=== PATIENT | male | born 2000 | race Caucasian/White ===

== ENCOUNTER 2022-08-30 16:13 | Emergency (ER) | payer OTHER ==
[2022-08-30] MEDS ORDERED: MORPHINE 2 MG/ML CARPUJECT IVP STA ×2 (16:19→17:04)
--- NOTE | 2022-08-30 16:21 | ED Physician Documentation ---
History of Present Illness - Stated complaint Stated Complaint: LOC/HIT HEAD/LAC - History obtained from History obtained from: Patient, EMS - Additonal information Additional information: Otherwise healthy 22-year-old gentleman was at work today. He was "wrestling" with his coworkers and fell and hit the back of his head on tile. There was loss of consciousness and now he is confused with a severe headache. No other injuries. Review of Systems Unable to obtain: Confused PD PAST MEDICAL HISTORY - Present Medications Home Medications: Ambulatory Orders Medication Instructions Recorded Confirmed Ondansetron Odt [Zofran] 4 mg TL Q6H PRN #10 tablet 08/30/22 - Allergies Allergies/Adverse Reactions: Allergies Allergy/AdvReac Type Severity Reaction Status Date / Time No Known Drug Allergies Allergy Verified 08/30/22 16:21 PD ED PE NORMAL - Vitals Vital signs reviewed: Yes - General General: No acute distress, Other (Alert and oriented to person and events but not place or time, although he thinks he is in "medical") - HEENT HEENT: PERRL, EOMI - Neck Neck: No bony TTP (But will CT given altered mental status) - Cardiac Cardiac: RRR, No murmur - Respiratory Respiratory: No respiratory distress, Clear bilaterally - Abdomen Abdomen: Non tender - Back Back: No CVA TTP, No spinal TTP - Derm Derm: Normal color, Warm and dry - Extremities Extremities: No edema, No calf tenderness / cord - Neuro Neuro: custodial aide 2-12 intact, No motor deficit, No sensory deficit, Normal speech Eye Opening: Spontaneous Motor: Obeys Commands Verbal: Confused GCS Score: 14 Results - Vitals Vitals: Vital Signs - 24 hr 08/30/22 08/30/22 08/30/22 16:15 16:41 17:21 Temperature 37.2 C Heart Rate 98 89 90 Respiratory 16 16 16 Rate Blood Pressure 124/77 128/82 H 105/87 H O2 Saturation 97 96 99 08/30/22 08/30/22 08/30/22 17:58 19:00 20:26 Temperature Heart Rate 87 105 H 97 Respiratory 16 18 16 Rate Blood Pressure 121/85 H 133/83 H 120/72 O2 Saturation 99 100 97 08/30/22 08/30/22 21:11 22:10 Temperature Heart Rate 92 98 Respiratory 18 18 Rate Blood Pressure 100/60 122/75 O2 Saturation 97 97 Oxygen O2 Source Room air - Labs Labs: Laboratory Tests 08/30/22 08/30/22 08/30/22 17:13 17:13 17:13 WBC 14.1 H RBC 5.13 Hgb 13.6 L Hct 42.2 MCV 82.3 MCH 26.5 L MCHC 32.2 RDW 13.2 Plt Count 294 MPV 10.5 Neut # (Auto) 11.6 H Lymph # (Auto) 1.4 L [place] # (Auto) 0.9 Eos # (Auto) 0.1 Baso # (Auto) 0.1 Absolute Nucleated RBC 0.00 Nucleated RBC % 0.0 PT 12.3 INR 1.1 Sodium 134 L Potassium 3.7 Chloride 101 Carbon Dioxide 23 Anion Gap 10.0 BUN 18 Creatinine 0.8 Estimated GFR (MDRD) 123 Glucose 130 H Calcium 8.4 L - Rads (name of study) CT Head Radiology: Final report received ( ), Discussed with rads, EMP read indepedently CT C Spine Radiology: Final report received, EMP read indepedently Rpt CT Head Radiology: Final report received, EMP read indepedently PD Medical Decision Making - ED course Complexity details: re-evaluated patient (Rpt eval with at bedise, A/Ox4, nl gait. Sx controlled.) ED course: CT Head #1: IMPRESSION: Trace subtle subarachnoid blood products within the sulci of the anterior-inferior right frontal lobe and anterior right temporal lobe. No intraparenchymal contusion or hemorrhage is seen. Ventricles and basilar cisterns are patent. CT CSpine: 1. Nondisplaced left occipital bones fracture/basilar skull fracture. 2. No evidence acute cervical fracture or dislocation. 22-year-old gentleman presents with a head injury. Found to have a small amount of subarachnoid hemorrhage and the images were sent to [facility] for consultation. After some delays as the neurosurgical team was in the OR I spoke with Dr. Everton Piper MD At approximately 7:09 PM and he agrees that patient can be safely discharged if a CT done at the 6-hour time soham is without significant interval change. Departure - Departure Disposition: 01 Home, Self Care Clinical Impression: Skull fracture, Subarachnoid hemorrhage following injury Condition: Good Record reviewed to determine appropriate education?: Yes Instructions: ED Head Injury Closed Prescriptions: Ondansetron Odt [Zofran] 4 mg TL Q6H PRN #10 tablet PRN Reason: Nausea / Vomiting Comments: You were seen tonight for a head injury in which she suffered significant concussive symptoms, and also a small subarachnoid hemorrhage and a skull fracture. We did 2 CAT scans, to make sure that it was not progressing and the second looks better than the first. Although no specific therapy is needed for this, I would like you to do the following: Avoid aspirin, ibuprofen, and other anti-inflammatories for the next week. You can take Tylenol for pain. Off work through the weekend. 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 Forms: Activity restrictions Discharge Date/Time: 08/30/22 22:17
--- NOTE | 2022-08-30 16:57 | CT Report ---
PROCEDURE: HEAD WO INDICATIONS: head inj TECHNIQUE: Noncontrast 4.5 mm thick angled axial sections acquired from the foramen magnum to the vertex. For r adiation dose reduction, the following was used: automated exposure control, adjustment of mA and/or kV according to patient size. COMPARISON: None. FINDINGS: Image quality: Excellent. Brain and CSF: Subtle hyperdense signal is seen within the sulci of the anterior-inferior right fron fausto lobe and right temporal lobe, as well as in the right sylvian fissure that is suspicious for a tr martina convexity subarachnoid blood products, likely related to recent trauma. No intraparenchymal edema or contusion seen. No midline shift. Morrow-white matter interface is normal. Ventricles are normal in size and shape. No intraventricular blood products. No extra-axial fluid collection. Basal cistern s are patent. Skull and face: Calvarium and visualized facial bones are intact, without suspicious lesions. Sinuses: Visualized sinuses and mastoids are clear. IMPRESSION: Trace subtle subarachnoid blood products within the sulci of the anterior-inferior right frontal lobe and anterior right temporal lobe. No intraparenchymal contusion or hemorrhage is seen. Ventricles and basilar cisterns are patent. Findings were discussed with the referring physician, Dr. Cline, by telephone at 08/30/2022 at 4:55 P M. Reviewed by: Fidel Spears MD on 08/30/2022 4:56 PM PST Approved by: Fidel Spears MD on 08/30/2022 4:56 PM PST Station ID: [id number]
--- NOTE | 2022-08-30 17:03 | CT Report ---
PROCEDURE: CERVICAL SPINE WO INDICATIONS: head inj TECHNIQUE: Noncontrast 3 mm thick sections acquired from the skull base to the T4 level. Sagittal and coronal r eformats were then constructed. For radiation dose reduction, the following was used: automated exp osure control, adjustment of mA and/or kV according to patient size. COMPARISON: CT head from the same date. FINDINGS: Image quality: Excellent. Bones: There is a nondisplaced left occipital bone/basilar skull fracture. No cervical fracture or di slocation. Visualized superior ribs are intact. Soft tissues: Prevertebral soft tissues are normal in thickness. No paravertebral hematomas. No ap ical pneumothoraces. IMPRESSION: 1. Nondisplaced left occipital bones fracture/basilar skull fracture. 2. No evidence acute cervical fracture or dislocation. Reviewed by: German Vergara MD on 08/30/2022 5:02 PM PST Approved by: German Vergara MD on 08/30/2022 5:02 PM PST Station ID: [id number]
[2022-08-30 17:21] LABS: BASOPHILS # (AUTO) 0.1 10^3/uL (0.0-0.1); BASOPHILS % (AUTO) 0.5 %; EOSINOPHILS # (AUTO) 0.1 10^3/uL (0.0-0.7); EOSINOPHILS % (AUTO) 0.4 %; HCT - HEMATOCRIT 42.2 % (42.0-52.0); HGB - HEMOGLOBIN 13.6 g/dL (14.0-18.0); LYMPHOCYTES # (AUTO) 1.4 10^3/uL (1.5-3.5); MEAN CORPUSCULAR HEMOGLOBIN 26.5 pg (27.0-31.0); MEAN CORPUSCULAR HGB CONC 32.2 g/dL (32.0-36.0); MEAN CORPUSCULAR VOLUME 82.3 fL (80.0-94.0); MEAN PLATELET VOLUME 10.5 fL (7.4-11.4); MONOCYTES # (AUTO) 0.9 10^3/uL (0.0-1.0); MONOCYTES % (AUTO) 6.5 %; NEUTROPHILS # (AUTO) 11.6 10^3/uL (1.5-6.6); NEUTROPHILS % (AUTO) 82.3 %; PLT - PLATELET COUNT 294 10^3/uL (130-450); RED BLOOD COUNT 5.13 10^6/uL (4.70-6.10); RED CELL DISTRIBUTION WIDTH 13.2 % (12.0-15.0); WHITE BLOOD COUNT 14.1 x10^3/uL (4.8-10.8)
[2022-08-30 17:27] LABS: CALCIUM 8.4 mg/dL (8.5-10.3); CREATININE 0.8 mg/dL (0.6-1.2); POTASSIUM 3.7 mmol/L (3.5-5.0)
[2022-08-30 17:28] LABS: INR 1.1 (0.8-1.2); PT - PROTHROMBIN TIME 12.3 secs (9.9-12.6)
[2022-08-30] MEDS ORDERED: MECLIZINE 12.5 MG TABLET PO STA (18:16)
[2022-08-30] MEDS ORDERED: METOCLOPRAMIDE 10 MG/2 ML VIAL IVP STA (19:11)
[2022-08-30] MEDS ORDERED: ONDANSETRON ODT 4 MG Prepack 2 TL STA (21:57)
[2022-08-30] MEDS ORDERED: HYDROcod/ACET 5/325 Prepack 4 PO STA (21:57)
[2022-08-30 22:12] VITALS: BP 122/75
--- NOTE | 2022-08-30 22:20 | CT Report ---
PROCEDURE: HEAD WO INDICATIONS: reeval SAH TECHNIQUE: Noncontrast 4.5 mm thick angled axial sections acquired from the foramen magnum to the vertex. For r adiation dose reduction, the following was used: automated exposure control, adjustment of mA and/or kV according to patient size. COMPARISON: None. FINDINGS: Image quality: Excellent. CSF spaces: Basal cisterns are patent. No extra-axial fluid collections. Ventricles are normal in size and shape. Brain: There is minimal indistinct high density tracking along the sulci of the anterior inferior ri ght frontal lobe and anterior right temporal lobe suspicious for a small amount of subarachnoid hemor rhage. Findings appear similar to the prior study. Minimal high density along the sylvian fissure ninoska ears slightly decreased in prominence. No new additional areas of intracranial hemorrhage identified. No mass or mass effect. Morrow-white matter interface appears preserved. Skull and face: A nondepressed fracture of the left occipital bone is redemonstrated. Calvarium other caldwell appears intact. Sinuses: Visualized sinuses and mastoids are clear. IMPRESSION: 1. Minimal subarachnoid hemorrhage along the anterior inferior right frontal and temporal lobes appea r similar to the prior study. No new areas of intracranial hemorrhage. 2. Nondepressed left occipital bone fracture redemonstrated. Reviewed by: Raul Rico MD on 08/30/2022 10:18 PM PST Approved by: Raul Rico MD on 08/30/2022 10:18 PM PST Station ID: [id number]
== END 2022-08-30 22:17 | disposition home or self-care (01) ==
LOC: ED 16:13
DX: S02.91XA Unspecified fracture of skull, initial encounter for closed fracture (principal); S06.6X1A Traumatic subarachnoid hemorrhage with loss of consciousness of 30 minutes or less, initial encounter; Y93.72 Activity, wrestling
CPT/HCPCS: 36415; 70450; 72125; 80048; 85025; 85610; 96374; 96375; 96376; 99284; A9270; J2765